=== PATIENT | male | born 1950 | race Caucasian/White ===

== ENCOUNTER 2018-06-27 11:11 | Observation (INO) | payer OTHER ==
[~2018-06-27] VITALS: Ht 182.9 cm; Wt 108.4 kg
[~2018-06-27 11:11] MED LIST: Aspir 8181 MG PO; LORPSEER12 PO; Prinivil10 MG PO
[2018-06-27 11:31] LABS: BASOPHILS ABSOLUTE AUTO 0.03 K/mm3 (0.00-0.23); BASOPHILS PERCENT AUTO 0 % (0-2); EOSINOPHILS ABSOLUTE AUTO 0.13 K/mm3 (0.00-0.68); EOSINOPHILS PERCENT AUTO 1 % (0-6); Hematocrit 49.2 % (37.0-53.0); Hemoglobin 16.5 g/dL (13.5-17.5); IMMATURE GRAN ABSOLUTE AUTO 0.08 K/mm3 (0.00-0.10); IMMATURE GRAN PERCENT AUTO 1 % (0-1); LYMPHOCYTES ABSOLUTE AUTO 1.67 K/mm3 (0.84-5.20); LYMPHOCYTES PERCENT AUTO 18 % (21-46); MONOCYTES ABSOLUTE AUTO 0.61 K/mm3 (0.16-1.47); MONOCYTES PERCENT AUTO 7 % (4-13); Mean Corpuscular HGB 31.4 pg (26.0-34.0); Mean Corpuscular HGB Conc 33.5 g/dL (31.5-36.5); Mean Corpuscular Volume 94 fL (80-100); Mean Platelet Volume 10.4 fL (9.1-12.4); NEUTROPHILS ABSOLUTE AUTO 6.59 K/mm3 (1.96-9.15); NEUTROPHILS PERCENT AUTO 72 % (41-73); Platelet Count 216 K/mm3 (150-400); RDW Coefficient Variation 13.2 % (11.7-14.2); RDW Standard Deviation 45.7 fL (35.1-46.3); Red Blood Cell Count 5.25 M/mm3 (4.30-5.90); White Blood Cell Count 9.11 K/mm3 (4.00-11.30)
[2018-06-27] MEDS ORDERED: LISI20 PO (11:39)
[2018-06-27 12:05] LABS: Albumin, Blood 3.7 g/dL (3.4-5.0); Albumin/Globulin Ratio 1.1 (0.8-1.8); Bilirubin, Total 0.4 mg/dL (0.1-1.0); Bun/Creatinine Ratio 15.7 (12.0-20.0); Creatinine, Blood 1.53 mg/dL (0.60-1.20); Globulin, Blood 3.5 g/dL (2.2-4.0); Potassium, Blood 4.5 mmol/L (3.5-5.5); Total Protein, Blood 7.2 g/dL (6.4-8.2); Troponin I 0.02 ng/mL (0.000-0.040)
[2018-06-27] MEDS ORDERED: Aspir 8181 MG PO (15:55)
[2018-06-28 02:04] LABS: Hematocrit 45.9 % (37.0-53.0); Hemoglobin 15.8 g/dL (13.5-17.5); Mean Corpuscular HGB 32.2 pg (26.0-34.0); Mean Corpuscular HGB Conc 34.4 g/dL (31.5-36.5); Mean Corpuscular Volume 94 fL (80-100); Mean Platelet Volume 10.6 fL (9.1-12.4); Platelet Count 202 K/mm3 (150-400); RDW Coefficient Variation 13.3 % (11.7-14.2); RDW Standard Deviation 45.4 fL (35.1-46.3); Red Blood Cell Count 4.91 M/mm3 (4.30-5.90)
[2018-06-28 02:16] LABS: Anion Gap 7 mmol/L (6-16); Blood Urea Nitrogen 18 mg/dL (8-24); Bun/Creatinine Ratio 14.6 (12.0-20.0); CO2, Blood 26 mmol/L (21-32); Calcium, Blood 8.4 mg/dL (8.5-10.1); Chloride, Blood 107 mmol/L (98-108); Creatinine, Blood 1.23 mg/dL (0.60-1.20); Glomerular Filtration Rate >60 (60-); Glucose, Blood 118 mg/dL (70-99); Potassium, Blood 4.6 mmol/L (3.5-5.5); Sodium, Blood 140 mmol/L (136-145)
[2018-06-29 06:34] LABS: Anion Gap 8 mmol/L (6-16); Blood Urea Nitrogen 17 mg/dL (8-24); CO2, Blood 26 mmol/L (21-32); Calcium, Blood 8.6 mg/dL (8.5-10.1); Chloride, Blood 105 mmol/L (98-108); Creatinine, Blood 1.21 mg/dL (0.60-1.20); Glomerular Filtration Rate >60 (60-); Glucose, Blood 113 mg/dL (70-99); Potassium, Blood 4.7 mmol/L (3.5-5.5); Sodium, Blood 139 mmol/L (136-145)
[2018-06-29] MEDS ORDERED: HYDR1TAB94 PO (11:37)
== END 2018-06-29 11:49 | disposition home or self-care (01) ==
LOC: ER 11:11 → PCU 11:12 → SURS 15:50
PROVIDERS: Internal Medicine; Surgery
PROC: BF13YZZ Fluoroscopy of Gallbladder and Bile Ducts using Other Contrast (ICD-10-PCS; principal; 2018-06-28 11:30)
PROC: 0FT44ZZ Resection of Gallbladder, Percutaneous Endoscopic Approach (ICD-10-PCS; principal; 2018-06-28 11:30)
DX: K80.12 Calculus of gallbladder with acute and chronic cholecystitis without obstruction (principal); F17.210 Nicotine dependence, cigarettes, uncomplicated; D68.51 Activated protein C resistance; I12.9 Hypertensive chronic kidney disease with stage 1 through stage 4 chronic kidney disease, or unspecified chronic kidney disease; N18.3 Chronic kidney disease, stage 3 (moderate); N17.9 Acute kidney failure, unspecified; M19.90 Unspecified osteoarthritis, unspecified site; Z88.7 Allergy status to serum and vaccine; Z79.899 Other long term (current) drug therapy; Z88.8 Allergy status to other drugs, medicaments and biological substances
CPT/HCPCS: 36415; 71046; 74300; 76705; 80048; 80053; 83690; 84484; 85025; 85027; 88304; 93005; 93010; 96361; 96365; 96366; 96374; 96375; 96376; 99285-25; C1729; C9113; G0378; J1100; J1170; J1956; J2250; J2370; J2405; J2710; J3010; J7030; J7120

== ENCOUNTER 2019-01-08 07:13 | Day surgery (SDC) | payer OTHER ==
[~2019-01-08] VITALS: Ht 182.9 cm; Wt 105.0 kg
[~2019-01-08 07:13] MED LIST changes: +DIALYVITE WITH1 EACH PO; +FISH OIL 1,001000 MG PO; +Glucosamine &1 EACH PO; +HYDR1TAB94 PO; +LISI20 PO; +MULTI VITAMIN1 EACH PO; +Saw Palmetto500 MG PO; +ZESTRIL40 MG PO
== END 2019-01-08 09:15 | disposition home or self-care (01) ==
LOC: ORSCSDS 07:13
PROVIDERS: Surgery
PROC: 0DJD8ZZ Inspection of Lower Intestinal Tract, Via Natural or Artificial Opening Endoscopic (ICD-10-PCS; principal; 2019-01-08 08:30)
DX: Z12.11 Encounter for screening for malignant neoplasm of colon (principal); I10 Essential (primary) hypertension; Z86.010 Personal history of colon polyps; Z79.82 Long term (current) use of aspirin; Z79.899 Other long term (current) drug therapy
CPT/HCPCS: J2704; J7120